=== PATIENT | male | born 1985 | race Caucasian/White ===

== ENCOUNTER 2020-12-15 08:40 | Inpatient (IN) ==
[2020-12-15] MEDS ORDERED: Ondansetron 4 MG/2 ML VIAL IVP ONE ×2 (08:50→10:49)
[2020-12-15] MEDS ORDERED: 0.9 % Sodium Chloride 1,000 ML IVC ONE (08:50)
[2020-12-15 09:28] LABS: Basophils % 0.2 %; Eosinophils % 0.2 %; Hematocrit 40.4 % (37.5-50.1); Immature Granulocytes % 0.6 % (0-4); Lymphocytes # 1.2 K/mcL (0.6-4.6); Lymphocytes % 6.7 %; Mean Corpuscular HGB Conc 34.7 g/dL (31.6-35.5); Mean Corpuscular Hemoglobin 30.2 pg (28.0-33.3); Mean Corpuscular Volume 87.3 fL (83.0-100.0); Monocytes # 0.5 K/mcL (0.0-1.3); Monocytes % 2.7 %; Neutrophils # 15.7 K/mcL (1.6-8.9); Platelet Count 329 K/mcL (140-400); Red Blood Count 4.63 M/mcL (4.19-5.50); Segmented Neutrophils % 89.6 %; White Blood Count 17.5 K/mcL (4.3-11.1)
[2020-12-15 09:41] LABS: INR 1.1; Prothrombin Time 12.9 Seconds (9.4-12.1)
[2020-12-15 09:50] LABS: Acetaminophen 95 mcg/mL (10-20); Alanine Aminotransferase 38 Units/L (7-52); Albumin 5.1 g/dL (3.5-5.7); Albumin/Globulin Ratio 1.6 (1.1-2.2); Alkaline Phosphatase 75 Units/L (34-104); Amylase 92 Units/L (29-103); Aspartate Amino Transferase 34 Units/L (13-39); BUN/Creatinine Ratio 13 (6-26); Bilirubin,Direct 0.1 mg/dL (0.0-0.2); Bilirubin,Indirect 0.1 mg/dL (0.0-1.0); Bilirubin,Total 0.2 mg/dL (0.3-1.0); Blood Urea Nitrogen 13 mg/dL (6-20); Calcium 9.2 mg/dL (8.6-10.3); Carbon Dioxide 15 mEq/L (23-29); Chloride 103 mEq/L (98-107); Globulin 3.2 g/dL (2.4-3.5); Glucose 133 mg/dL (70-105); Lipase 20 Units/L (11-82); Osmolality,Calculated 286 (280-300); Potassium 3.9 mEq/L (3.5-5.1); Salicylate > 80.0 mg/dL (15.0-30.0); Sodium 137 mEq/L (136-145); Total Protein 8.3 g/dL (6.4-8.9); Troponin I < 0.03 ng/mL (< 0.04); eGFR For African Americans > 60 (> 60); eGFR For Non-African Americans > 60 (> 60)
[2020-12-15 10:14] LABS: Bilirubin,Urine Negative (Negative); Blood,Urine Small (Negative); Clarity,Urine Clear (Clear); Color,Urine Light-Yellow (Yellow); Glucose,Urine (UA) Normal (Normal); Ketones,Urine 100 mg/dL (Negative); Leukocyte Esterase,Urine Negative (Negative); Mucus,Urine Few per lpf (None-Few); Nitrite,Urine Negative (Negative); Protein,Urine 30 mg/dL (Neg-Trace); RBC,Urine 0-3 per hpf (0-3); Specific Gravity,Urine 1.022 (1.010-1.025); Urobilinogen,Urine Normal (Normal); WBC,Urine 0-3 per hpf (0-3)
[2020-12-15 10:26] LABS: VBG HCO3 16 mEq/L (21-27); VBG PCO2 27 mmHg (41-51); VBG PH 7.38 pH Units (7.32-7.42); VBG PO2 82 mmHg (25-50)
[2020-12-15] MEDS ORDERED: ACETYLCYSTEINE IVC ONE ×3 (10:28→19:00)
[2020-12-15] MEDS ORDERED: D5 IVC ONE ×3 (10:28→19:00)
[2020-12-15] MEDS ORDERED: WATER IVC ONE ×3 (10:28→19:00)
[2020-12-15] MEDS ORDERED: Acetylcysteine 3,200 MG in D5% in Water 500 ML IVC ONE (10:28)
[2020-12-15] MEDS ORDERED: POTASSIUM CHLORIDE IVC SCH (10:30)
[2020-12-15] MEDS ORDERED: SODIUM BICARBONATE IVC SCH (10:30)
[2020-12-15] MEDS ORDERED: D5 IVC SCH (10:30)
[2020-12-15] MEDS ORDERED: WATER IVC SCH (10:30)
[2020-12-15] MEDS ORDERED: Ondansetron 4 MG/2 ML VIAL ONE (10:47)
[2020-12-15 10:51] LABS: Amphetamine Screen,Urine Positive ng/mL (Cutoff=1000); Barbiturate Screen,Urine Negative ng/mL (Cutoff=200); Benzodiazepines Screen,Urine Negative ng/mL (Cutoff=200); Cannabinoid Screen,Urine Negative ng/mL (Cutoff = 50); Cocaine Screen,Urine Negative ng/mL (Cutoff= 300); Opiate Screen,Urine Negative ng/mL (Cutoff=300); Phencyclidine Screen,Urine Negative ng/mL (Cutoff=25)
[2020-12-15 11:38] LABS: Acetaminophen 71 mcg/mL (10-20); Creatine Kinase 1140 Units/L (30-223); Salicylate > 80.0 mg/dL (15.0-30.0)
[2020-12-15 11:56] LABS: Ethanol < 10 mg/dL (Less than 10)
[2020-12-15] MEDS ORDERED: Naloxone 0.4 MG/ML INJ IVP PRN (11:56)
[2020-12-15] MEDS ORDERED: 0.9 % Sodium Chloride 250 ML IVC PRN (12:00)
[2020-12-15] MEDS ORDERED: 0.9 % Sodium Chloride 1,000 ML PRIME SCH (12:00)
[2020-12-15] MEDS ORDERED: Dexmedetomidine HCl 400 MCG/100 ML MLS IVC ONE (12:35)
[2020-12-15] MEDS ORDERED: *HR* LORazepam 2 MG/ML VIAL IVP PRN (12:37)
[2020-12-15] MEDS: Dexmedetomidine HCl 400 MCG/100 ML MLS IVC SCH ×3 (12:40→18:02)
[2020-12-15 14:29] LABS: Hepatitis B Surface Antibody 3.61 mIU/mL
[2020-12-15 14:40] LABS: Hepatitis B Surface Antigen Nonreactive (Nonreactive)
[2020-12-15] MEDS ORDERED: Sodium Bicarbonate 75 MEQ in 0.45 % Sodium Chloride 1,000 ML IH SCH (14:45)
[2020-12-15 14:59] LABS: Salicylate 77.4 mg/dL (15.0-30.0)
[2020-12-15] MEDS: Sodium Bicarbonate 75 MEQ in 0.45 % Sodium Chloride 1,000 ML IVC SCH (15:08)
[2020-12-15 15:21] LABS: Acetaminophen 45 mcg/mL (10-20); Salicylate > 80.0 mg/dL (15.0-30.0)
[2020-12-15 16:08] LABS: Salicylate 52.2 mg/dL (15.0-30.0)
[2020-12-15] MEDS ORDERED: 0.9 % Sodium Chloride 1,000 ML IV ONE (16:11)
[2020-12-15] MEDS: *HR* Heparin 5,000 UNIT/ML VIAL SQ SCH (17:03)
[2020-12-15 17:09] LABS: Salicylate 42.1 mg/dL (15.0-30.0)
[2020-12-15 17:52] LABS: Salicylate 30.3 mg/dL (15.0-30.0)
[2020-12-15] MEDS: Piperacillin/Tazobactam 3.375 GM in 0.9 % Sodium Chloride Mini Bag 100 ML IVPB SCH (17:53)
[2020-12-15 18:52] LABS: Salicylate 26.9 mg/dL (15.0-30.0)
[2020-12-15 20:17] LABS: Basophils % 0.2 %; Eosinophils % 0.2 %; Hematocrit 31.2 % (37.5-50.1); Immature Granulocytes % 0.5 % (0-4); Lymphocytes # 4.9 K/mcL (0.6-4.6); Lymphocytes % 27.8 %; Mean Corpuscular HGB Conc 35.3 g/dL (31.6-35.5); Mean Corpuscular Hemoglobin 30.7 pg (28.0-33.3); Mean Corpuscular Volume 87.2 fL (83.0-100.0); Mean Platelet Volume 10.4 fL (9.4-12.4); Monocytes # 0.9 K/mcL (0.0-1.3); Monocytes % 5.1 %; Neutrophils # 11.7 K/mcL (1.6-8.9); Platelet Count 225 K/mcL (140-400); Red Blood Count 3.58 M/mcL (4.19-5.50); Red Cell Distribution Width 12.3 % (11.5-14.5); Segmented Neutrophils % 66.2 %; White Blood Count 17.6 K/mcL (4.3-11.1)
[2020-12-15 20:20] LABS: VBG Ionized Calcium 0.85 mmol/L (1.15-1.35)
[2020-12-15 20:41] LABS: Acetaminophen < 10 mcg/mL (10-20); BUN/Creatinine Ratio 10 (6-26); Blood Urea Nitrogen 8 mg/dL (6-20); Calcium 7.2 mg/dL (8.6-10.3); Carbon Dioxide 27 mEq/L (23-29); Chloride 97 mEq/L (98-107); Creatine Kinase 953 Units/L (30-223); Glucose 159 mg/dL (70-105); Magnesium 1.5 mg/dL (1.6-2.6); Osmolality,Calculated 284 (280-300); Phosphorous 1.5 mg/dL (2.7-4.5); Potassium 2.7 mEq/L (3.5-5.1); Salicylate 31.8 mg/dL (15.0-30.0); Sodium 136 mEq/L (136-145); eGFR For African Americans > 60 (> 60); eGFR For Non-African Americans > 60 (> 60)
[2020-12-15] MEDS: Calcium Gluconate 1gm/50mL 1 GM/50 ML BAG IVPB PRN (21:54)
[2020-12-15] MEDS: Potassium Chloride 40 MEQ/200 ML BAG IVPB PRN (21:54)
[2020-12-15] MEDS ORDERED: Albumin 25% 25gram/100mL 25 GM/100 ML IV.SOLN IVPB ONE (23:34)
[2020-12-16] MEDS: Sodium Bicarbonate 75 MEQ in 0.45 % Sodium Chloride 1,000 ML IVC SCH (02:45)
[2020-12-16] MEDS: Piperacillin/Tazobactam 3.375 GM in 0.9 % Sodium Chloride Mini Bag 100 ML IVPB SCH ×2 (02:49→09:40)
[2020-12-16 03:33] LABS: VBG Ionized Calcium 0.88 mmol/L (1.15-1.35)
[2020-12-16 03:34] LABS: Basophils # 0.1 K/mcL (0.0-0.2); Basophils % 0.5 %; Eosinophils # 0.3 K/mcL (0.0-0.6); Eosinophils % 2.3 %; Hematocrit 27.6 % (37.5-50.1); Hemoglobin 9.9 g/dL (12.9-16.9); Immature Granulocytes % 0.3 % (0-4); Lymphocytes # 3.8 K/mcL (0.6-4.6); Lymphocytes % 32.8 %; Mean Corpuscular HGB Conc 35.9 g/dL (31.6-35.5); Mean Corpuscular Hemoglobin 30.5 pg (28.0-33.3); Mean Corpuscular Volume 84.9 fL (83.0-100.0); Mean Platelet Volume 10.4 fL (9.4-12.4); Monocytes # 0.7 K/mcL (0.0-1.3); Neutrophils # 6.7 K/mcL (1.6-8.9); Platelet Count 200 K/mcL (140-400); Red Blood Count 3.25 M/mcL (4.19-5.50); Red Cell Distribution Width 12.7 % (11.5-14.5); Segmented Neutrophils % 58.1 %; White Blood Count 11.6 K/mcL (4.3-11.1)
[2020-12-16 03:51] LABS: Albumin 3.6 g/dL (3.5-5.7); Bilirubin,Direct 0.1 mg/dL (0.0-0.2); Bilirubin,Indirect 0.2 mg/dL (0.0-1.0); Bilirubin,Total 0.3 mg/dL (0.3-1.0); Globulin 1.8 g/dL (2.4-3.5); Total Protein 5.4 g/dL (6.4-8.9)
[2020-12-16 03:52] LABS: Acetaminophen < 10 mcg/mL (10-20); Salicylate 27.3 mg/dL (15.0-30.0)
[2020-12-16 03:58] LABS: BUN/Creatinine Ratio 9 (6-26); Blood Urea Nitrogen 9 mg/dL (6-20); Calcium 7.4 mg/dL (8.6-10.3); Carbon Dioxide 26 mEq/L (23-29); Chloride 98 mEq/L (98-107); Creatine Kinase 766 Units/L (30-223); Glucose 119 mg/dL (70-105); Magnesium 2.3 mg/dL (1.6-2.6); Osmolality,Calculated 282 (280-300); Phosphorous 2.8 mg/dL (2.7-4.5); Potassium 2.5 mEq/L (3.5-5.1); Sodium 136 mEq/L (136-145); eGFR For African Americans > 60 (> 60); eGFR For Non-African Americans > 60 (> 60)
[2020-12-16] MEDS: Potassium Chloride 40 MEQ/200 ML BAG IVPB PRN (04:11)
[2020-12-16] MEDS: Calcium Gluconate 1gm/50mL 1 GM/50 ML BAG IVPB PRN ×3 (04:12→11:02)
[2020-12-16] MEDS: *HR* Heparin 5,000 UNIT/ML VIAL SQ SCH ×2 (05:10→18:29)
[2020-12-16 10:21] LABS: VBG Ionized Calcium 1.07 mmol/L (1.15-1.35)
[2020-12-16 12:15] LABS: BUN/Creatinine Ratio 8 (6-26); Blood Urea Nitrogen 8 mg/dL (6-20); Calcium 8.1 mg/dL (8.6-10.3); Carbon Dioxide 27 mEq/L (23-29); Chloride 100 mEq/L (98-107); Glucose 81 mg/dL (70-105); Osmolality,Calculated 279 (280-300); Phosphorous 1.6 mg/dL (2.7-4.5); Sodium 136 mEq/L (136-145); eGFR For African Americans > 60 (> 60); eGFR For Non-African Americans > 60 (> 60)
[2020-12-16 12:27] LABS: Salicylate 19.5 mg/dL (15.0-30.0)
[2020-12-16] MEDS ORDERED: QUEtiapine Fumarate 25 MG TABLET PO SCH (21:00)
[2020-12-17] MEDS: *HR* Heparin 5,000 UNIT/ML VIAL SQ SCH (05:02)
[2020-12-17 07:05] LABS: Basophils # 0.1 K/mcL (0.0-0.2); Basophils % 0.6 %; Eosinophils # 0.9 K/mcL (0.0-0.6); Eosinophils % 10.6 %; Hemoglobin 9.6 g/dL (12.9-16.9); Immature Granulocytes % 0.2 % (0-4); Lymphocytes # 2.6 K/mcL (0.6-4.6); Lymphocytes % 32.5 %; Mean Corpuscular HGB Conc 33.1 g/dL (31.6-35.5); Mean Corpuscular Hemoglobin 30.2 pg (28.0-33.3); Mean Platelet Volume 11.1 fL (9.4-12.4); Monocytes # 0.6 K/mcL (0.0-1.3); Monocytes % 7.8 %; Neutrophils # 3.9 K/mcL (1.6-8.9); Platelet Count 217 K/mcL (140-400); Red Blood Count 3.18 M/mcL (4.19-5.50); Red Cell Distribution Width 13.4 % (11.5-14.5); Segmented Neutrophils % 48.3 %
[2020-12-17 07:11] LABS: Mean Corpuscular Volume 91.2 fL (83.0-100.0)
[2020-12-17 08:48] LABS: Albumin 3.5 g/dL (3.5-5.7); Albumin/Globulin Ratio 1.8 (1.1-2.2); Bilirubin,Indirect 0.2 mg/dL (0.0-1.0); Bilirubin,Total 0.2 mg/dL (0.3-1.0); Globulin 1.9 g/dL (2.4-3.5); Total Protein 5.4 g/dL (6.4-8.9)
[2020-12-17 09:52] LABS: BUN/Creatinine Ratio 12 (6-26); Blood Urea Nitrogen 10 mg/dL (6-20); Calcium 8.6 mg/dL (8.6-10.3); Carbon Dioxide 27 mEq/L (23-29); Chloride 106 mEq/L (98-107); Glucose 111 mg/dL (70-105); Osmolality,Calculated 294 (280-300); Potassium 3.4 mEq/L (3.5-5.1); Sodium 142 mEq/L (136-145); eGFR For African Americans > 60 (> 60); eGFR For Non-African Americans > 60 (> 60)
[2020-12-17 09:56] LABS: Magnesium 1.6 mg/dL (1.6-2.6); Phosphorous 1.9 mg/dL (2.7-4.5)
[2020-12-17] MEDS ORDERED: Pantoprazole 40 MG VIAL IVP SCH (12:15)
[2020-12-17 13:35] VITALS: BP 135/60
[2020-12-17] MEDS ORDERED: *HR* Heparin 5,000 UNIT/ML VIAL SQ SCH (18:00)
== END 2020-12-17 14:50 | disposition left against medical advice (07) | DRG 812 ==
LOC: EMEROOARM 08:40 → ICNU 11:48 → SUATTDRO 11:48 → ICNU 12:26 → 3ANU 12-16 19:24
PROVIDERS: ADMIT Internal Medicine; ATTEND Pharmacist